=== PATIENT | male | born 1945 | race Caucasian/White ===

== ENCOUNTER 2017-05-08 14:10 | Outpatient (CLI) | payer MEDICARE ==
--- NOTE | 2017-05-08 15:34 | SJPRAD ---
THREE VIEWS RIGHT SHOULDER: Comparison: None. History: Right shoulder pain. FINDINGS: Three views of the right shoulder shows no evidence of acute fracture or dislocation. There is moder ate degenerative changes of the glenohumeral joint. IMPRESSION: Moderate right shoulder osteoarthritis without acute osseous abnormality. POS: [facility]
== END 2017-05-08 14:11 | disposition home or self-care (01) ==
LOC: MWLC RAD 14:10
PROVIDERS: ATTEND Family Medicine
DX: M19.011 Primary osteoarthritis, right shoulder (principal)

== ENCOUNTER 2019-06-01 10:46 | Outpatient (CLI) | payer MEDICARE, BC ==
--- NOTE | 2019-06-01 11:38 | CT ---
Exam: Chest CT scan without IV contrast: HISTORY: Solitary pulmonary nodule FINDINGS: Numerous poorly circumscribed pulmonary nodules are noted throughout both right and left lungs up to 0.9 cm in the left upper lobe and 1.2 x 1.5 cm in the right upper lobe. There is evidence for mediastinal adenopathy with numerous prevascular nodes. Right paratracheal node measures 2 cm, pretra cheal node measures 1.2 cm. Left paratracheal node measures 1.8 cm. In addition there is some nodular fullness of both the hilar regions possibly representing some hilar adenopathy as well. No ev idence for pericardial effusion or pleural effusion. 5.1 cm left renal cyst. IMPRESSION: Very numerous poorly circumscribed nodules in right and left lungs evidence for metastasis. Evidence for mediastinal adenopathy as above. Probable minimal hilar adenopathy.
== END 2019-06-01 10:47 | disposition home or self-care (01) ==
LOC: BICCT 10:46
PROVIDERS: ATTEND Family Medicine
DX: R91.8 Other nonspecific abnormal finding of lung field (principal); R59.0 Localized enlarged lymph nodes; C78.02 Secondary malignant neoplasm of left lung; C78.01 Secondary malignant neoplasm of right lung
CPT/HCPCS: 71250

== ENCOUNTER 2019-06-08 10:07 | Outpatient (CLI) | payer MEDICARE, BC ==
--- NOTE | 2019-06-08 11:31 | CT ---
CT OF THE CHEST, ABDOMEN AND PELVIS WITH IV CONTRAST INDICATION: Follow-up pulmonary nodules; concern for metastatic disease COMPARISON: CT of the thorax dated June 01, 2019 FINDINGS: CHEST: Lungs: Again seen are scattered, predominantly perihilar, pulmonary nodules. Some are in a tree-in-bu d type configuration. Many are smaller in size and number than on the previous examination. The most conspicuous nodule within the right upper lobe seen in a tree-in-bud type nodular pattern is dec reased in size, previously measuring 15 x 12 mm now measuring 14 x 7 mm. An additional large pulmonary nodule in the left upper lobe previously measuring 9.4 mm, now measures 8.6 mm. Conspicuous nodule in the left lower lobe on image 43 of series 3 measuring 6 mm previously, now measures 8.5 mm. Conspicuous nodule in the right lower lobe on image 45 of series 3 previously measuring 11.3 mm, now measures 10.2 mm. There are calcified granuloma within the right lower lobe Pleural space: No effusion. Mediastinum: Enlarged right paratracheal lymph node previously measuring 16 mm now measures 15 mm. Pr eviously enlarged subcarinal lymph node measuring 16.5 mm now measures 13.7 mm. There are mildly prominent hilar lymph nodes bilaterally. One of the most conspicuous seen within the right hilar jeff on on image 33 of series 2 measuring 8 mm. There are calcified lymph nodes within the mediastinum and hilar region. Axilla: No pathologically enlarged lymph nodes. There is a 2.3 cyst like abnormalities seen along the inferior aspect of the glenoid which may reflec t a periarticular ganglion. ABDOMEN: Lung bases: Clear Liver: No focal lesion. Gallbladder: Normal appearing. Pancreas: Normal. Adrenal glands: Normal. Spleen: Normal. Kidneys and ureters: There is a small exophytic hyperdense lesion measuring 7 mm off the posterior as pect of the left mid kidney on image 73 of series 2. There is a 6 cm super pole left renal cyst. There are other renal hypodensities, too small to characterize due to their size. Vasculature: There are mild vascular calcifications seen involving the visualized vasculature. Lymph nodes:There are mildly prominent lymph nodes within the upper abdomen or retroperitoneum. There is a periportal lymph node image 58 of series 2 measuring 11 mm. There is a portacaval lymph node measuring 1 cm. There is a left periaortic lymph node measuring 11 mm on image 72 of series 2. Free fluid in abdomen:No free fluid is evident. PELVIS: Small and large bowel: There is scattered colonic diverticulosis. There is a left inguinal hernia con taining unobstructed loops of sigmoid colon. Appendix:Not definitely seen Bladder: Normal. Rectal and perirectal soft tissues:Normal. Reproductive structures: There is a small right direct inguinal hernia containing unobstructed loops of distal ileum. Free fluid in pelvis: No free fluid is evident. Lymphadenopathy pelvis: No lymphadenopathy is evident. Osseous structures: No acute osseous abnormality. No destructive osteolytic or osteoblastic lesion i s identified. There is scattered degenerative and osteoarthritic changes. Mild thoracolumbar scoliosis Soft tissues:Normal. IMPRESSION: 1. Decreasing size and conspicuity of the bilateral pulmonary nodules suggest inflammatory or infecti ous pulmonary nodules. Recommend continued therapy and a follow-up CT evaluation of the thorax in 6 weeks to document stability or resolution. 2. Improving mediastinal and hilar lymphadenopathy. 3. Mild abdominal lymphadenopathy 4. Small exophytic hyperdense lesion off the left kidney. Recommend a dedicated CT the abdomen with a nd without contrast utilizing a renal mass protocol for further characterization. 5. Bilateral inguinal hernias containing unobstructed bowel. 6. Small cystic abnormality is seen adjacent to the right glenohumeral joint. This is incompletely ch aracterized. If clinically indicated further evaluation with an MRI of the right shoulder may be helpful.
[2019-06-08] MEDS ORDERED: Iopamidol 370 76% 100 ML VIAL ONE (13:53)
== END 2019-06-08 10:08 | disposition home or self-care (01) ==
LOC: CT 10:07
PROVIDERS: ATTEND Internal Medicine Hematology & Oncology
DX: R91.8 Other nonspecific abnormal finding of lung field (principal); R59.0 Localized enlarged lymph nodes; R59.1 Generalized enlarged lymph nodes; N28.9 Disorder of kidney and ureter, unspecified; K40.20 Bilateral inguinal hernia, without obstruction or gangrene, not specified as recurrent; M25.811 Other specified joint disorders, right shoulder
CPT/HCPCS: 71260; 74177; Q9967

== ENCOUNTER 2019-06-13 08:48 | Outpatient (CLI) | payer MEDICARE, BC ==
--- NOTE | 2019-06-13 11:57 | CT ---
CT ABDOMEN WITH AND WITHOUT IV CONTRAST: Date: 06/13/19 HISTORY: Abnormal findings on exam of 06/08/19. Exam requested to evaluate the left renal mass noted on . FINDINGS: The small exophytic about 1 cm mass arising from the posterior cortex of the left kidney demonstrates postcontrast enhancement and is suspicious for malignancy. There is a 6 cm cyst arising from the sup erior pole of the left kidney. The right kidney is normal. A punctate calculus is seen in the left ki dney. No calculi seen in the right kidney or visualized portions of the ureters. No hydroureteronephr osis noted on either side. There is normal excretion of contrast into the pelvicaliceal systems and u reters bilaterally on the delayed images. Remainder of exam stable since 06/08/19. IMPRESSION: 1. Findings are suspicious for malignancy involving the 1.0 cm exophytic mass arising from the poste rior cortex of the left kidney. 2. Left renal cyst. 3. Tiny, nonobstructing left renal calculus. 4. Remainder of exam is stable since 06/08/19. POS: [facility]
== END 2019-06-13 08:49 | disposition home or self-care (01) ==
LOC: CT 08:48
PROVIDERS: ATTEND Internal Medicine Hematology & Oncology
DX: N28.89 Other specified disorders of kidney and ureter (principal); R93.7 Abnormal findings on diagnostic imaging of other parts of musculoskeletal system; N28.1 Cyst of kidney, acquired; N20.0 Calculus of kidney
CPT/HCPCS: 74170

== ENCOUNTER 2019-06-19 03:17 | Emergency (ER) | payer MEDICARE, BC ==
[2019-06-19] MEDS ORDERED: Nitroglycerin 2% Ointment 1 INCH/1 GM Packet ONE (03:43)
[2019-06-19] MEDS ORDERED: Aspirin Chewable 81 MG TAB ONE (03:43)
[2019-06-19 03:51] LABS: #Eosinphils 0.5 thou/uL (0.0-0.7); #Monocytes 0.9 thou/uL (0.11-0.59); #Neutrophils 6.8 thou/uL (1.40-6.50); %Basophils 0.5 % (0.0-1.0); %Eosinophils 5.8 % (0.0-10.0); %Lymphocytes 10.8 % (21.0-51.0); %Monocytes 9.9 % (0.0-10.0); %Neutrophils 73.1 % (42.0-75.0); Hemoglobin 16.4 g/dL (14.0-18.0); Mean Corpuscular HGB CONC 33.8 g/dL (32.0-36.0); Mean Corpuscular Hemoglobin 33.1 pg (27.0-31.0); Mean Platelet Volume 8.4 fL (7.4-10.4); Platelet Count 182 thou/uL (130-400); RBC Distribution Width 11.3 % (11.5-14.5); Red Blood Cell (RBC) Count 4.95 mill/uL (4.70-6.10); White Blood Cell (WBC) Count 9.3 thou/uL (4.8-10.8)
[2019-06-19 04:11] LABS: ALT (SGPT) 30 U/L (8-55); AST (SGOT) 23 U/L (5-34); Albumin 4.6 g/dL (3.4-4.8); Alkaline Phosphatase 74 U/L (40-110); Anion Gap 11 mmol/L (10-20); BUN (Urea Nitrogen) 19 mg/dL (8.4-25.7); Bilirubin, Total 1.2 mg/dL (0.2-1.2); CK (CPK) 102 U/L (30-200); Calc. Creatinine Clearance 0 mL/min (70-130); Calcium 9.8 mg/dL (7.8-10.44); Carbon Dioxide 27 mmol/L (23-31); Chloride 106 mmol/L (98-107); Estimated GFR-MDRD 59; Glucose 90 mg/dL (83-110); Lipase 68 U/L (8-78); Potassium 4.4 mmol/L (3.5-5.1); Protein, Total 7.6 g/dL (5.8-8.1); Sodium 140 mmol/L (136-145)
--- NOTE | 2019-06-19 11:08 | RAD ---
FRONTAL RADIOGRAPH CHEST: 06/19/2019 COMPARISON: 08/12/2018 HISTORY: Left-sided chest pain and arm pain. FINDINGS: No pneumothorax, pleural fluid, focal consolidation or alveolar edema. Heart and mediastinal contours are unremarkable. There is degenerative change involving the bilateral glenohumeral joints, right gr eater than left. IMPRESSION: No focal consolidation or alveolar edema. POS: [facility]
== END 2019-06-19 04:17 | disposition home or self-care (01) ==
LOC: ERS 03:17
DX: B02.9 Zoster without complications (principal); I10 Essential (primary) hypertension; Z79.899 Other long term (current) drug therapy
CPT/HCPCS: 36415; 71045; 80053; 82550; 83690; 84484; 85025; 93005; 94760

== ENCOUNTER 2019-07-22 08:43 | Outpatient (CLI) | payer MEDICARE, BC ==
--- NOTE | 2019-07-22 11:38 | CT ---
CT THORAX WITH IV CONTRAST: INDICATIONS: Fall. Pulmonary nodules. COMPARISON: Prior CT chest, abdomen and pelvis dated 06/08/[address] thorax dated 06/01/2019. FINDINGS: The scattered peribronchial nodules, stable to the most recent comparison, dated 06/08/2019, remain s lightly smaller than on the comparison dated 06/01/2019. Some of these small nodules have areas of ce ntral calcification. The largest grouping of nodules within the right upper lobe on image 53 of serie s 3 measures 1.3 cm, which is stable appearing. The largest nodule within the right lung base on imag e 80 of series 3 measures 10 mm, which is stable appearing. The most conspicuous nodule in the left u pper lobe on image 47 of series 3 is stable, measuring 8 mm. There is slight interval enlargement of the mediastinal lymphadenopathy. The subcarinal lymph node pr eviously measuring 1.3 cm, now measures 1.5 cm. The right infrahilar node previously measuring 8 mm, now measures 9.5 mm. There is an AP window lymph node now measuring 1.6 cm which previously measured 1.5 cm. There is a right paratracheal lymph node previously measuring 1.5 cm that now measures 1.8 cm . There is an anterior mediastinal lymph node adjacent to the left common carotid artery measuring 6. 7 mm where it previously measured 7 mm. Upper abdominal lymphadenopathy is stable appearing. There is a periportal lymph node measuring 1.1 cm. There is a left paraaortic lymph node measuring 1.1 cm. Th ere is a stable left renal cyst. There is scattered degenerative and osteoarthritic change. IMPRESSION: 1. Stable predominantly peribronchovascular nodules seen throughout both lungs. Some of the nodules c ontain central areas of calcification. 2. Prominent slightly interval enlargement of the mediastinal lymphadenopathy with scattered areas of calcified lymph nodes. 3. Overall findings are suspicious for underlying inflammatory entities such as sarcoidosis. Inhalat ional disorders cannot be entirely excluded. Chronic fungal disease could have a similar appearance. Lymphoma could also have a similar appearance. Continued followup is recommended. 4. Mild lymphadenopathy of the upper abdomen is stable appearing. 5. Left renal cyst. POS: [facility]
== END 2019-07-22 08:44 | disposition home or self-care (01) ==
LOC: BICCT 08:43
PROVIDERS: ATTEND Internal Medicine Hematology & Oncology
DX: R91.8 Other nonspecific abnormal finding of lung field (principal); R59.0 Localized enlarged lymph nodes; N28.1 Cyst of kidney, acquired
CPT/HCPCS: 71260; 82565

== ENCOUNTER 2019-07-29 08:44 | Outpatient (CLI) | payer MEDICARE, BC ==
--- NOTE | 2019-07-29 12:06 | PET ---
PET CT: HISTORY: A 74-year-old male with lung nodules and mediastinal lymphadenopathy on a chest CT from 07/22/2019 (R 91.8, R91.1). CORRELATION: CT chest dated 07/22/2019. TECHNIQUE: PET scanning with CT attenuation correction was performed from the base of the brain through the prox imal thighs following the intravenous administration 11 millicuries of F18 fluorodeoxyglucose in the right antecubital fossa. FINDINGS: There is increased FDG localization in a right posterior mediastinal lymph node with an SUV of 8, lef t hilar lymph node with an SUV of 5.9 and right hilar lymph node with an SUV of 4.5 and left para-aor tic lymph node with an SUV of 3.9. No catarino hypermetabolism is seen in the neck, axillae or pelvis. No hypermetabolic lung nodules or li jolynn, adrenal or skeletal lesions are seen. There is physiologic activity in the GI and tracts and in the visualized portions of the brain. CT scan used for attenuation correction demonstrates no evidence of pleural effusions or ascites. The re is a left renal cyst and colonic diverticulosis. A left leg inguinal scrotal hernia is seen contai josh a loop of sigmoid colon. IMPRESSION: Hypermetabolic lymph nodes in the chest and abdomen. Differential diagnosis includes neoplastic or in flammatory disease. POS: [facility]
== END 2019-07-29 08:45 | disposition home or self-care (01) ==
LOC: PET 08:44
PROVIDERS: ATTEND Internal Medicine Hematology & Oncology
DX: R91.8 Other nonspecific abnormal finding of lung field (principal); R59.0 Localized enlarged lymph nodes
CPT/HCPCS: 78815; A9552

== ENCOUNTER 2019-08-10 08:19 | Day surgery (SDC) | payer MEDICARE, BC ==
[2019-08-05 12:33] VITALS: BMI 27.2
--- NOTE | 2019-08-08 10:00 | HP ---
SERVICE: Pulmonary Medicine. REASON FOR CONSULTATION: Abnormal PET scan. HISTORY OF PRESENT ILLNESS: The patient is a very pleasant 74-year-old white male with past medical history significant for essentially nothing. He was in his usual state of health when his primary care physician did a chest x-ray because of an abnormality that was identified on the chest x-ray 10 years prior. The chest x-ray prompted a CT scan. This demonstrated bilateral pulmonary nodules and mediastinal lymphadenopathy. A subsequent PET scan of the chest was performed, which demonstrated hypermetabolic pulmonary nodules. He denies any current fevers, chills, nausea, vomiting, diarrhea, weight loss, hemoptysis, or night sweats. Otherwise, he is completely in his usual state of health. These spots were first identified when he was living in [place]. More recently, he has relocated to the [place] area. PAST MEDICAL HISTORY: 1. Hypertension. 2. Dyslipidemia. 3. BPH. 4. Aortic stenosis. 5. Osteoarthritis. 6. Rhinitis. 7. Recent episode of shingles. PAST SURGICAL HISTORY: Tonsillectomy. FAMILY HISTORY: Positive for high blood pressure and diabetes. SOCIAL HISTORY: Negative for alcohol, tobacco, or illicit drug use. He is essentially a lifelong nonsmoker. He has no exposure to chemicals, dust, asbestos, or tuberculosis. ALLERGIES: NO KNOWN DRUG ALLERGIES. MEDICATIONS: 1. Lisinopril 10 mg p.o. daily. 2. Atorvastatin 20 mg p.o. daily. 3. Doxazosin 4 mg p.o. daily. 4. Gabapentin 300 mg p.o. three times daily. 5. Montelukast 10 mg p.o. at bedtime. 6. Aspirin 81 mg p.o. daily. 7. Fish oil 1200 mg p.o. daily. 8. Vitamin C 1000 mg p.o. daily. REVIEW OF SYSTEMS: General; head, ears, eyes, nose, throat; cardiovascular; respiratory; GI; ; musculoskeletal; neurologic; and skin are negative except as mentioned in the HPI. PHYSICAL EXAMINATION: VITAL SIGNS: Afebrile, pulse 74, respirations 18, and saturation 99% on room air. GENERAL: The patient is awake and alert, in no apparent distress. LUNGS: Wonderful air entry with no prolonged expiratory phase or wheezing present. HEART: Normal rate and regular. ABDOMEN: Soft, nontender, and nondistended. Bowel sounds are positive. MUSCULOSKELETAL: No cyanosis or clubbing. There is no pitting in the bilateral lower extremities. NEUROLOGIC: Grossly nonfocal. IMAGIN. CT of the chest demonstrates fairly significant mediastinal lymphadenopathy. This was PET positive. He also has bilateral pulmonary nodules that are primarily in a lymphangitic distribution. 2. PET scan demonstrates hypermetabolic activity in the mediastinal lymph nodes. The pulmonary nodules did not demonstrate any FDG avidity. Additionally, they demonstrated calcium deposits suggesting benign etiology. ASSESSMENT: 1. Pulmonary nodules, bilateral with a lymphatic distribution. 2. Mediastinal lymphadenopathy, PET positive. DISCUSSION AND PLAN: We will move forward with a bronchoscopy with brush/wash biopsy and endoscopic bronchial ultrasound-guided transbronchial needle aspiration of the mediastinal lymph nodes. We will likely sample this station R10, and 7 as the R10 lesion was one of the nodes identified as being positive on PET scan. He will return to clinic in roughly 2 weeks to follow up results of the biopsy. Job ID: [id number]
[2019-08-10] MEDS ORDERED: Lidocaine 4% PF 5 ML AMP FS SCH (09:15)
[2019-08-10] MEDS ORDERED: Sodium Chloride 0.9% 1,000 ML IV SCH (09:15)
[2019-08-10] MEDS ORDERED: Dexamethasone 20 MG/5 ML VIAL ONE (09:34)
[2019-08-10] MEDS ORDERED: Lidocaine 1% PF 5 ML VIAL ONE (09:34)
[2019-08-10] MEDS ORDERED: PHENYLEPHRINE-NS 100 MCG/ML 10 ML SYRINGE ONE (09:34)
[2019-08-10] MEDS ORDERED: Ondansetron PF 4 MG/2 ML Vial ONE (09:34)
[2019-08-10] MEDS ORDERED: PROPOFOL 200 MG/20 ML VIAL ONE (09:34)
[2019-08-10] MEDS ORDERED: Rocuronium Bromide 10 MG/ML (10ML VIAL) ONE (09:34)
[2019-08-10] MEDS ORDERED: SUGAMMADEX SODIUM 200 MG/2 ML VIAL ONE (10:18)
[2019-08-10] MEDS ORDERED: Fentanyl 100 MCG/2 ML VIAL ONE (10:18)
[2019-08-10] MEDS ORDERED: Midazolam HCl 2 mg/2 ml Vial ONE (10:18)
[2019-08-10 14:33] LABS: BF Color Red; Body Fluid Source Bronchial Washings; Clarity Hazy (Clear); Tube # EDTA
[2019-08-10 14:34] LABS: BF WBC/Nonhematics Ct. - Manua 92 /cumm
[2019-08-10 14:43] LABS: BF Segmented Neutrophils 15 %
[2019-08-10 14:44] LABS: Cell Count Non Hematic 61 %; Lymphocytes 24 %
--- NOTE | 2019-08-10 16:32 | OP ---
DATE OF PROCEDURE: 08/10/2019 SERVICE: Pulmonary Medicine. PROCEDURE PERFORMED: Fiberoptic bronchoscopy with; 1. Visual airway inspection. 2. Endobronchial brush of the right upper lobe. 3. Bronchoalveolar lavage of the right upper lobe. 4. Transbronchial biopsies of the right upper lobe. 5. Endoscopic bronchial ultrasound-guided transbronchial needle aspiration of stations R10, 7, L4. PREPROCEDURE DIAGNOSES: 1. Mediastinal lymphadenopathy. 2. Pulmonary infiltrate with nodules. POSTPROCEDURE DIAGNOSES: 1. Mediastinal lymphadenopathy. 2. Pulmonary infiltrate with nodules. ANESTHESIA: General. PREANESTHESIA ASSESSMENT: H and P had been performed. The patient's medications and allergies were reviewed. Informed consent was obtained after discussing the risks, benefits, and rationale for performing the procedure as well as alternative options for sample collection. DESCRIPTION OF PROCEDURE: The patient was positively identified using name and date of . The procedure was verified. After induction with anesthesia, the curvilinear endoscopic bronchial ultrasound Olympus bronchoscope was introduced through the endotracheal tube and into the tracheobronchial tree. Limited visual airway inspection was performed with no abnormalities noted within the trachea or mainstem bronchi. The bronchoscope was withdrawn into the trachea and a catarino survey was performed. Endoscopic bronchial ultrasound-guided transbronchial needle aspiration of station 7, R10, and L4 was performed. There was no significant bleeding post biopsy. The scope was subsequently removed and replaced with a diagnostic fiberoptic bronchoscope. This was advanced into the trachea and a tracheobronchial tree inspection was carried out with clear identification of the right upper lobe, right middle lobe, right lower lobe, left upper lobe, lingula, and left lower lobe. Anatomy was normal to the segmental level. Bronchoalveolar lavage was obtained from the right upper lobe. Endobronchial brushings and transbronchial biopsies were also performed in the same area under fluoroscopic guidance. Hemostasis was verified and the bronchoscope was removed from the patient. Postprocedure fluoroscopy did not demonstrate a pneumothorax. FINDINGS: 1. No endobronchial disease was identified. 2. Secretions were minimal. 3. Ariane appeared sharp. 4. Rapid on-site pathology suggested there was no malignancy. 5. All mediastinal lymph nodes were hard and rubbery. When the needle entered the lymph node, attempted FNA resulted in movement of the lymph node and not the needle. If this is nondiagnostic, alternative sample collection should be considered. SPECIMENS OBTAINED: Pathology for BAL, brushings, and transbronchial biopsy. FNA at multiple levels. COMPLICATIONS: None ESTIMATED BLOOD LOSS: 5 mL FLUROSCOPY TIME: 2 minutes DISPOSITION: Patient will be discharged home with post-procedure instructions. They will return to clinic as previously directed. Job ID: [id number] [id number]
[2019-08-15 07:09] LABS: Fungus Stain Final report (.)
== END 2019-08-10 13:52 | disposition home or self-care (01) ==
LOC: SDC 08:19
PROVIDERS: ATTEND Internal Medicine
PROC: 0B9C8ZX Drainage of Right Upper Lung Lobe, Via Natural or Artificial Opening Endoscopic, Diagnostic (ICD-10-PCS; principal; 2019-08-10)
PROC: 0B9C8ZX Drainage of Right Upper Lung Lobe, Via Natural or Artificial Opening Endoscopic, Diagnostic (ICD-10-PCS; 2019-08-10)
PROC: 0BDK8ZX Extraction of Right Lung, Via Natural or Artificial Opening Endoscopic, Diagnostic (ICD-10-PCS; 2019-08-10)
PROC: 07D78ZX Extraction of Thorax Lymphatic, Via Natural or Artificial Opening Endoscopic, Diagnostic (ICD-10-PCS; 2019-08-10)
DX: R59.0 Localized enlarged lymph nodes (principal); R91.8 Other nonspecific abnormal finding of lung field; I10 Essential (primary) hypertension; E78.5 Hyperlipidemia, unspecified; N40.0 Benign prostatic hyperplasia without lower urinary tract symptoms; I35.0 Nonrheumatic aortic (valve) stenosis; M19.90 Unspecified osteoarthritis, unspecified site; Z79.899 Other long term (current) drug therapy
CPT/HCPCS: 76000; 85060; 87070; 87102; 87116; 87205; 87206; 88112; 88172; 88173; 88177; 88305; 88312; 88313; 89051; J1100; J2001; J2250; J2405; J2704; J3010

== ENCOUNTER 2020-01-03 12:27 | Outpatient (CLI) | payer MEDICARE, BC ==
[~2020-01-03 12:27] MED LIST: Iopamidol 370 76% 100 ML VIAL ONE
--- NOTE | 2020-01-03 14:37 | CT ---
CT CHEST WITH CONTRAST: INDICATION: Followup adenopathy and pulmonary nodularity. COMPARISON: Comparison is made to chest CT 07/22/2019. FINDINGS: Images of the lungs again show numerous bilateral pulmonary nodules. The size, number, and distribut ion of these nodules do not appear significantly changed. The largest pulmonary opacity continues to be seen in the right mid lung along the fissure. This has a somewhat ovoid linear-shaped opacity pr imarily in the right upper lobe but abutting the minor fissure. It is unchanged in size and appearan ce. No effusion. No new infiltrate. Mediastinal and hilar adenopathy is again noted. The size and extent of the adenopathy also appears stable. Images through the upper abdomen again show adenopathy in the upper abdomen with portocaval and milana hepatis adenopathy and small periaortic lymph nodes again noted. The large left renal cyst is again seen. The upper abdomen findings also appear stable. No evidence of axillary adenopathy. Thyroid unremarkable. Osseous structures unremarkable. IMPRESSION: 1. Numerous bilateral pulmonary nodules are again seen. The size, number, and extent of these nodul es appear stable from the prior exam. 2. Mediastinal, hilar, and upper abdominal adenopathy is again seen. The adenopathy appears stable. POS: [facility]
== END 2020-01-03 12:28 | disposition home or self-care (01) ==
LOC: BICCT 12:27
PROVIDERS: ATTEND Internal Medicine
DX: R59.0 Localized enlarged lymph nodes (principal); R91.8 Other nonspecific abnormal finding of lung field
CPT/HCPCS: 71260; 82565; Q9967

== ENCOUNTER 2020-10-01 12:24 | Outpatient (CLI) | payer MEDICARE, BC ==
[~2020-10-01 12:24] MED LIST changes: -Iopamidol 370 76% 100 ML VIAL ONE; +Iopamidol-370 76% 500 ML 1 ML ONE
== END 2020-10-01 12:25 | disposition home or self-care (01) ==
LOC: BICCT 12:24
PROVIDERS: ATTEND Urology
DX: D41.01 Neoplasm of uncertain behavior of right kidney (principal); N20.0 Calculus of kidney; R91.8 Other nonspecific abnormal finding of lung field; R59.0 Localized enlarged lymph nodes; K57.30 Diverticulosis of large intestine without perforation or abscess without bleeding; N28.1 Cyst of kidney, acquired; N28.89 Other specified disorders of kidney and ureter
CPT/HCPCS: 74170; 82565; Q9967

== ENCOUNTER 2021-01-01 09:16 | Outpatient (CLI) | payer MEDICARE, BC | END 2021-01-01 09:17 | disposition home or self-care (01) | LOC: BICCT 09:16 | PROVIDERS: ATTEND Internal Medicine Critical Care Medicine | DX: R91.8 Other nonspecific abnormal finding of lung field (principal) | CPT/HCPCS: 71250 ==

== ENCOUNTER 2021-01-14 11:29 | Inpatient (IN) | payer MEDICARE, BC ==
[2021-01-14 11:56] LABS: #Eosinphils 0.4 thou/uL (0.0-0.7); #Lymphocytes 0.7 thou/uL (1.20-3.40); #Monocytes 1.1 thou/uL (0.11-0.59); #Neutrophils 10.1 thou/uL (1.40-6.50); %Basophils 0.3 % (0.0-1.0); %Eosinophils 3.2 % (0.0-10.0); %Lymphocytes 5.7 % (21.0-51.0); %Monocytes 8.9 % (0.0-10.0); %Neutrophils 81.9 % (42.0-75.0); Hemoglobin 14.6 g/dL (14.0-18.0); Mean Corpuscular HGB CONC 34.4 g/dL (32.0-36.0); Mean Corpuscular Hemoglobin 34.1 pg (27.0-31.0); Mean Corpuscular Volume 99.1 fL (78.0-98.0); Mean Platelet Volume 7.4 fL (7.4-10.4); Platelet Count 247 thou/uL (130-400); RBC Distribution Width 11.4 % (11.5-14.5); Red Blood Cell (RBC) Count 4.29 mill/uL (4.70-6.10); White Blood Cell (WBC) Count 12.3 thou/uL (4.8-10.8)
[2021-01-14 12:14] LABS: ALT (SGPT) 46 U/L (8-55); AST (SGOT) 33 U/L (5-34); Albumin 3.9 g/dL (3.4-4.8); Alkaline Phosphatase 146 U/L (40-110); Anion Gap 15 mmol/L (10-20); BUN (Urea Nitrogen) 13 mg/dL (8.4-25.7); Bilirubin, Total 1.5 mg/dL (0.2-1.2); Calc. Creatinine Clearance 0 mL/min (70-130); Calcium 9.8 mg/dL (7.8-10.44); Carbon Dioxide 25 mmol/L (23-31); Chloride 103 mmol/L (98-107); Globulin 3.6 g/dL (2.4-3.5); Glucose 100 mg/dL (83-110); Protein, Total 7.5 g/dL (5.8-8.1); Sodium 139 mmol/L (136-145)
[2021-01-14 13:39] LABS: Bilirubin Negative (Negative); Blood, Urine Negative (Negative); Clarity Clear (Clear); Glucose, Urine (Dipstick) Normal (Negative); Ketone, Urine 10 mg/dL (Negative); Leukocyte Negative Leu/uL (Negative); Nitrite Negative (Negative); Protein, Urine (Dipstick) Negative (Neg-Trace); Specific Gravity, Urine 1.018 (1.002-1.036)
[2021-01-14] MEDS ORDERED: Piperacillin/Tazobactam 4.5 GM VIAL ONE (13:52)
[2021-01-14] MEDS ORDERED: HYDROcodone/Acetaminophen 5/325 mg Tablet PO PRN (20:19)
[2021-01-14] MEDS ORDERED: Ondansetron ODT 4 MG TAB PO PRN (20:19)
[2021-01-14] MEDS ORDERED: Ondansetron PF 4 MG/2 ML Vial IVP PRN (20:19)
[2021-01-14] MEDS ORDERED: Acetaminophen 325 MG TAB PO PRN (20:19)
[2021-01-14] MEDS: Sodium Chloride 0.9% 1,000 ML IV SCH (23:04)
[2021-01-14] MEDS: Piperacillin/Tazobactam 4.5 GM in Sodium Chloride 0.9% 100 ML IVPB SCH (23:04)
[2021-01-15 03:53] VITALS: BMI 27.0
[2021-01-15 06:03] LABS: #Basophils 0.1 thou/uL (0.0-0.2); #Eosinphils 0.6 thou/uL (0.0-0.7); #Lymphocytes 1.8 thou/uL (1.20-3.40); #Monocytes 0.7 thou/uL (0.11-0.59); #Neutrophils 10.5 thou/uL (1.40-6.50); %Basophils 0.5 % (0.0-1.0); %Eosinophils 4.3 % (0.0-10.0); %Lymphocytes 12.9 % (21.0-51.0); %Monocytes 5.5 % (0.0-10.0); %Neutrophils 76.8 % (42.0-75.0); Hemoglobin 13.6 g/dL (14.0-18.0); Mean Corpuscular HGB CONC 33.2 g/dL (32.0-36.0); Mean Corpuscular Hemoglobin 33.2 pg (27.0-31.0); Mean Corpuscular Volume 99.9 fL (78.0-98.0); Mean Platelet Volume 7.4 fL (7.4-10.4); Platelet Count 272 thou/uL (130-400); RBC Distribution Width 11.3 % (11.5-14.5); Red Blood Cell (RBC) Count 4.12 mill/uL (4.70-6.10); White Blood Cell (WBC) Count 13.6 thou/uL (4.8-10.8)
[2021-01-15 06:25] LABS: Anion Gap 14 mmol/L (10-20); BUN (Urea Nitrogen) 14 mg/dL (8.4-25.7); Calc. Creatinine Clearance 75 mL/min (70-130); Calcium 9.5 mg/dL (7.8-10.44); Carbon Dioxide 22 mmol/L (23-31); Chloride 107 mmol/L (98-107); Glucose 92 mg/dL (83-110); Potassium 4.3 mmol/L (3.5-5.1); Sodium 139 mmol/L (136-145)
[2021-01-15] MEDS: Piperacillin/Tazobactam 4.5 GM in Sodium Chloride 0.9% 100 ML IVPB SCH ×3 (08:15→19:43)
[2021-01-15] MEDS: Sodium Chloride 0.9% 1,000 ML IV SCH (08:16)
[2021-01-15] MEDS ORDERED: Enoxaparin Sodium 40 MG/0.4 ML SYRINGE SC SCH (09:00)
[2021-01-15] MEDS ORDERED: Calcium Carbonate 500 MG ChewTAB PO PRN (10:16)
[2021-01-15 11:47] LABS: SARS-CoV-2 PCR by NAA Not Detected (NotDetected)
[2021-01-15] MEDS ORDERED: Hydrocortisone Acetate 25 MG Suppository PR SCH ×2 (15:13→21:00)
[2021-01-15] MEDS ORDERED: Doxazosin Mesylate 4 MG TAB PO SCH (21:00)
[2021-01-15] MEDS ORDERED: Atorvastatin Calcium 20 MG TAB PO SCH (21:00)
[2021-01-15] MEDS: Docusate 100 MG CAP PO SCH (21:03)
[2021-01-15] MEDS: Famotidine 20 MG TAB PO SCH (21:03)
[2021-01-15] MEDS: Hydrocortisone Acetate 25 MG Suppository PR SCH (21:04)
[2021-01-15] MEDS ORDERED: Sodium Chloride 0.9% 1,000 ML IV SCH (22:46)
[2021-01-16] MEDS: Piperacillin/Tazobactam 4.5 GM in Sodium Chloride 0.9% 100 ML IVPB SCH (01:41)
[2021-01-16 06:44] LABS: #Basophils 0.1 thou/uL (0.0-0.2); #Eosinphils 0.7 thou/uL (0.0-0.7); #Monocytes 1.4 thou/uL (0.11-0.59); %Basophils 0.5 % (0.0-1.0); %Eosinophils 6.1 % (0.0-10.0); %Lymphocytes 9.3 % (21.0-51.0); %Monocytes 12.3 % (0.0-10.0); %Neutrophils 71.9 % (42.0-75.0); Hemoglobin 13.5 g/dL (14.0-18.0); Mean Corpuscular HGB CONC 32.1 g/dL (32.0-36.0); Mean Corpuscular Hemoglobin 32.4 pg (27.0-31.0); Mean Platelet Volume 7.3 fL (7.4-10.4); Platelet Count 277 thou/uL (130-400); RBC Distribution Width 11.3 % (11.5-14.5); Red Blood Cell (RBC) Count 4.16 mill/uL (4.70-6.10); White Blood Cell (WBC) Count 11.1 thou/uL (4.8-10.8)
[2021-01-16 06:57] LABS: ALT (SGPT) 44 U/L (8-55); AST (SGOT) 29 U/L (5-34); Albumin 3.3 g/dL (3.4-4.8); Alkaline Phosphatase 111 U/L (40-110); Anion Gap 15 mmol/L (10-20); BUN (Urea Nitrogen) 8 mg/dL (8.4-25.7); Bilirubin, Total 1.5 mg/dL (0.2-1.2); Calc. Creatinine Clearance 81 mL/min (70-130); Calcium 8.9 mg/dL (7.8-10.44); Carbon Dioxide 22 mmol/L (23-31); Chloride 106 mmol/L (98-107); Globulin 3.1 g/dL (2.4-3.5); Glucose 92 mg/dL (83-110); Magnesium 1.9 mg/dL (1.6-2.6); Potassium 3.7 mmol/L (3.5-5.1); Protein, Total 6.4 g/dL (5.8-8.1); Sodium 139 mmol/L (136-145)
[2021-01-16] MEDS ORDERED: Lisinopril 10 MG TAB PO SCH (09:00)
[2021-01-16] MEDS ORDERED: Fish Oil 1,000 MG CAP PO SCH (09:00)
[2021-01-16] MEDS ORDERED: Ascorbic Acid 500 mg Chewable Tablet PO SCH (09:00)
[2021-01-16] MEDS ORDERED: Saccharomyces boulardii 250 MG CAP PO SCH (09:00)
[2021-01-16] MEDS ORDERED: Cholecalciferol 1,000 UNITS (25 MCG) TAB PO SCH (09:00)
[2021-01-16] MEDS: Famotidine 20 MG TAB PO SCH (09:24)
[2021-01-16] MEDS: Docusate 100 MG CAP PO SCH (09:26)
[2021-01-16] MEDS: Hydrocortisone Acetate 25 MG Suppository PR SCH (09:38)
[2021-01-16] MEDS ORDERED: Piperacillin/Tazobactam 3.375 GM in Sodium Chloride 0.9% 100 ML IVPB SCH (10:00)
[2021-01-16 16:32] VITALS: BP 136/78; TEMP 98.3
== END 2021-01-16 16:20 | disposition home or self-care (01) | DRG 872 ==
LOC: ERS 11:29 → ERHOLD 17:05 → T4-A 21:46
PROVIDERS: ADMIT Internal Medicine; ATTEND Internal Medicine
DX: A41.9 Sepsis, unspecified organism (principal); K57.32 Diverticulitis of large intestine without perforation or abscess without bleeding; Z20.822 Contact with and (suspected) exposure to COVID-19; K40.90 Unilateral inguinal hernia, without obstruction or gangrene, not specified as recurrent; E78.5 Hyperlipidemia, unspecified; N40.0 Benign prostatic hyperplasia without lower urinary tract symptoms; N18.2 Chronic kidney disease, stage 2 (mild); K64.8 Other hemorrhoids; K64.4 Residual hemorrhoidal skin tags; R91.8 Other nonspecific abnormal finding of lung field; N28.1 Cyst of kidney, acquired; R59.9 Enlarged lymph nodes, unspecified; I12.9 Hypertensive chronic kidney disease with stage 1 through stage 4 chronic kidney disease, or unspecified chronic kidney disease; K59.00 Constipation, unspecified; M19.90 Unspecified osteoarthritis, unspecified site; I35.0 Nonrheumatic aortic (valve) stenosis; Z90.89 Acquired absence of other organs; Z79.899 Other long term (current) drug therapy; Z79.82 Long term (current) use of aspirin
CPT/HCPCS: 36415; 74177; 80048; 80053; 81003; 83605; 83690; 83735; 85025; 87040; 96365; J1650; J2543; J3490; Q9967; U0003; U0005

== ENCOUNTER 2022-04-08 08:01 | Outpatient (CLI) | payer MEDICARE, BC | END 2022-04-08 08:02 | disposition home or self-care (01) | LOC: BICCT 08:01 | PROVIDERS: ATTEND Internal Medicine Critical Care Medicine | DX: R91.8 Other nonspecific abnormal finding of lung field (principal); R59.0 Localized enlarged lymph nodes | CPT/HCPCS: 71250 ==